=== PATIENT | male | born 1930 | race Caucasian/White ===

== ENCOUNTER 2018-05-05 00:01 | Emergency (ER) | payer MEDICARE, OTHER ==
[~2018-05-05] VITALS: Ht 182.9 cm; Wt 75.0 kg
[2018-05-05] MEDS ORDERED: FINA5TAB41 PO (00:22)
[2018-05-05] MEDS ORDERED: SIMV-259 PO (00:22)
[2018-05-05] MEDS ORDERED: ALFU10TA30 PO (00:22)
[2018-05-05] MEDS ORDERED: CLOP75 PO (00:22)
[2018-05-05] MEDS ORDERED: RIVA15T PO (00:22)
[2018-05-05 02:08] VITALS: BP 143/88
== END 2018-05-05 02:11 | disposition home or self-care (01) ==
LOC: EMS 00:03
DX: H72.92 Unspecified perforation of tympanic membrane, left ear (principal); I10 Essential (primary) hypertension; E78.00 Pure hypercholesterolemia, unspecified; I48.91 Unspecified atrial fibrillation; Z79.01 Long term (current) use of anticoagulants; Z88.6 Allergy status to analgesic agent
CPT/HCPCS: 99283